=== PATIENT | male | born 1985 ===

== ENCOUNTER 2022-07-16 17:08 | Inpatient (IN) | payer BC ==
[2022-07-16] MEDS ORDERED: Morphine 4 MG/ML VIAL SLOW IVP PRN (23:30)
[2022-07-16 23:41] VITALS: BMI 34.1
[2022-07-16] MEDS ORDERED: Pantoprazole 40 MG VIAL IVP SCH (23:59)
[2022-07-17] MEDS: Ketorolac Tromethamine 30 MG/ML VIAL IVP PRN ×4 (00:02→18:49)
[2022-07-17] MEDS: Sodium Chloride 0.9% 1,000 ML IV SCH ×5 (00:02→20:22)
[2022-07-17] MEDS ORDERED: Acetaminophen 650 MG Suppository PR PRN (00:21)
[2022-07-17] MEDS ORDERED: Dextrose 50% Abboject 50 ML SYRINGE SLOW IVP PRN (00:21)
[2022-07-17] MEDS ORDERED: Dextrose 5% in Water 1,000 ML IV PRN (00:21)
[2022-07-17] MEDS ORDERED: Promethazine HCl 25 MG/ML VIAL IM PRN (00:21)
[2022-07-17] MEDS ORDERED: HumaLOG 300 UNITS/3 ML VIAL SC PRN ×2 (00:21)
[2022-07-17] MEDS ORDERED: Ondansetron ODT 4 MG TAB PO PRN (00:21)
[2022-07-17 01:30] LABS: Anion Gap 15 mmol/L (10-20); BUN (Urea Nitrogen) 14 mg/dL (8.9-20.6); Calc. Creatinine Clearance 254 mL/min (70-130); Calcium 8.9 mg/dL (7.8-10.44); Carbon Dioxide 24 mmol/L (22-29); Chloride 102 mmol/L (98-107); Estimated GFR 119; Glucose 134 mg/dL (70-105); Potassium 3.8 mmol/L (3.5-5.1); Sodium 137 mmol/L (136-145); Triglycerides 77 mg/dL (Less than 150)
[2022-07-17 01:35] LABS: Hemoglobin A1c 5.7 % (4.0-6.0)
[2022-07-17 01:40] LABS: ALT (SGPT) 15 U/L (8-55); AST (SGOT) 14 U/L (5-34); Albumin 3.9 g/dL (3.5-5.0); Alkaline Phosphatase 77 U/L (40-110); Bilirubin, Direct 0.4 mg/dL (0.1-0.3); Bilirubin, Total 0.8 mg/dL (0.2-1.2); Protein, Total 7.3 g/dL (6.0-8.3)
[2022-07-17] MEDS: Acetaminophen 325 MG TAB PO PRN ×3 (03:38→21:15)
[2022-07-17 04:21] LABS: Band 11 % (5-11); Hemoglobin 11.8 g/dL (14.0-18.0); Lymphocytes 7 % (21-51); MDiff Complete? YES; Mean Corpuscular HGB CONC 32.7 g/dL (32.0-36.0); Mean Corpuscular Hemoglobin 28.4 pg (27.0-31.0); Mean Corpuscular Volume 86.8 fL (78.0-98.0); Mean Platelet Volume 9.4 fL (7.4-10.4); Metamyelocyte 1 % (0-0); Monocytes 9 % (0-10); Neutrophil 72 % (42-75); Platelet Count 216 thou/uL (130-400); Platelet Morphology Comment PLT clumps seen-ADEQ; RBC Distribution Width 12.8 % (11.5-14.5); RBC Morphology Normal; Red Blood Cell (RBC) Count 4.17 mill/uL (4.70-6.10); Toxic Granulation SLIGHT; White Blood Cell (WBC) Count 20.9 thou/uL (4.8-10.8)
[2022-07-17] MEDS: Ondansetron PF 4 MG/2 ML Vial IVP PRN ×3 (04:29→17:15)
[2022-07-17] MEDS ORDERED: Morphine 4 MG/ML VIAL SLOW IVP PRN (04:41)
[2022-07-17] MEDS ORDERED: Morphine 4 MG/ML VIAL SLOW IVP SCH (04:45)
[2022-07-17] MEDS: Enoxaparin Sodium 40 MG/0.4 ML SYRINGE SC SCH (08:33)
[2022-07-17] MEDS: Pantoprazole 40 MG VIAL IVP SCH (08:33)
[2022-07-17] MEDS: Fentanyl 100 MCG/2 ML VIAL SLOW IVP PRN ×2 (15:56→22:31)
[2022-07-18] MEDS: Ketorolac Tromethamine 30 MG/ML VIAL IVP PRN ×2 (00:21→06:37)
[2022-07-18] MEDS: Acetaminophen 325 MG TAB PO PRN ×2 (01:22→19:02)
[2022-07-18] MEDS: Sodium Chloride 0.9% 1,000 ML IV SCH ×9 (02:00→23:59)
[2022-07-18] MEDS: Fentanyl 100 MCG/2 ML VIAL SLOW IVP PRN ×2 (04:44→12:02)
[2022-07-18] MEDS: Ondansetron PF 4 MG/2 ML Vial IVP PRN ×2 (06:37→15:19)
[2022-07-18 08:13] LABS: ALT (SGPT) 12 U/L (8-55); AST (SGOT) 13 U/L (5-34); Albumin 3.3 g/dL (3.5-5.0); Alkaline Phosphatase 77 U/L (40-110); Anion Gap 14 mmol/L (10-20); BUN (Urea Nitrogen) 9 mg/dL (8.9-20.6); Bilirubin, Total 0.5 mg/dL (0.2-1.2); Calc. Creatinine Clearance 304 mL/min (70-130); Calcium 8.3 mg/dL (7.8-10.44); Carbon Dioxide 20 mmol/L (22-29); Chloride 106 mmol/L (98-107); Estimated GFR 125; Globulin 3.3 g/dL (2.4-3.5); Glucose 131 mg/dL (70-105); Lipase 76 U/L (8-78); Potassium 3.5 mmol/L (3.5-5.1); Protein, Total 6.6 g/dL (6.0-8.3); Sodium 136 mmol/L (136-145)
[2022-07-18] MEDS: Enoxaparin Sodium 40 MG/0.4 ML SYRINGE SC SCH (08:17)
[2022-07-18] MEDS: Pantoprazole 40 MG VIAL IVP SCH (08:18)
[2022-07-18 08:51] LABS: Hemoglobin 11.1 g/dL (14.0-18.0); Mean Corpuscular HGB CONC 32.9 g/dL (32.0-36.0); Mean Corpuscular Hemoglobin 28.8 pg (27.0-31.0); Mean Corpuscular Volume 87.7 fL (78.0-98.0); Platelet Count 253 thou/uL (130-400); RBC Distribution Width 12.7 % (11.5-14.5); Red Blood Cell (RBC) Count 3.85 mill/uL (4.70-6.10); White Blood Cell (WBC) Count 16.5 thou/uL (4.8-10.8)
[2022-07-18 09:26] LABS: Band 3 % (5-11); Eosinophils 1 % (0-10); Lymphocytes 7 % (21-51); MDiff Complete? YES; Monocytes 9 % (0-10); Neutrophil 79 % (42-75); Platelet Morphology Comment Appears Adequate; RBC Morphology Normal; Reactive Lymphocytes 1 % (0-10)
[2022-07-18] MEDS: traMADol HCl 50 MG TAB PO PRN ×2 (13:15→20:18)
[2022-07-18] MEDS: Senokot 8.6 MG TAB PO SCH (20:18)
[2022-07-18] MEDS: Polyethylene Glycol 3350 17 GM Packet PO SCH (20:19)
[2022-07-19] MEDS: Sodium Chloride 0.9% 1,000 ML IV SCH ×4 (05:02→23:41)
[2022-07-19 08:14] LABS: #Eosinphils 0.3 thou/uL (0.0-0.7); #Lymphocytes 1.4 thou/uL (1.20-3.40); #Monocytes 1.6 thou/uL (0.11-0.59); #Neutrophils 11.9 thou/uL (1.40-6.50); %Basophils 0.3 % (0.0-1.0); %Eosinophils 1.6 % (0.0-10.0); %Lymphocytes 9.3 % (21.0-51.0); %Monocytes 10.3 % (0.0-10.0); %Neutrophils 78.4 % (42.0-75.0); Hemoglobin 11.1 g/dL (14.0-18.0); Mean Corpuscular HGB CONC 32.1 g/dL (32.0-36.0); Mean Corpuscular Hemoglobin 28.1 pg (27.0-31.0); Mean Corpuscular Volume 87.5 fL (78.0-98.0); Mean Platelet Volume 9.4 fL (7.4-10.4); Platelet Count 272 thou/uL (130-400); RBC Distribution Width 12.6 % (11.5-14.5); Red Blood Cell (RBC) Count 3.96 mill/uL (4.70-6.10); White Blood Cell (WBC) Count 15.2 thou/uL (4.8-10.8)
[2022-07-19 08:41] LABS: ALT (SGPT) 13 U/L (8-55); AST (SGOT) 13 U/L (5-34); Albumin 3.5 g/dL (3.5-5.0); Alkaline Phosphatase 87 U/L (40-110); Anion Gap 15 mmol/L (10-20); BUN (Urea Nitrogen) 4 mg/dL (8.9-20.6); Bilirubin, Total 0.7 mg/dL (0.2-1.2); Calc. Creatinine Clearance 295 mL/min (70-130); Calcium 8.9 mg/dL (7.8-10.44); Carbon Dioxide 20 mmol/L (22-29); Chloride 104 mmol/L (98-107); Estimated GFR 124; Globulin 3.3 g/dL (2.4-3.5); Glucose 114 mg/dL (70-105); Potassium 3.4 mmol/L (3.5-5.1); Protein, Total 6.8 g/dL (6.0-8.3); Sodium 136 mmol/L (136-145)
[2022-07-19] MEDS: Enoxaparin Sodium 40 MG/0.4 ML SYRINGE SC SCH (09:31)
[2022-07-19] MEDS: Senokot 8.6 MG TAB PO SCH ×2 (09:33→20:48)
[2022-07-19] MEDS: Pantoprazole 40 MG VIAL IVP SCH (10:06)
[2022-07-19] MEDS: Ondansetron PF 4 MG/2 ML Vial IVP PRN (16:46)
[2022-07-19] MEDS: traMADol HCl 50 MG TAB PO PRN (17:47)
[2022-07-19] MEDS: Polyethylene Glycol 3350 17 GM Packet PO SCH (20:51)
[2022-07-20] MEDS: Sodium Chloride 0.9% 1,000 ML IV SCH ×4 (04:42→17:59)
[2022-07-20 08:48] VITALS: TEMP 98.4
[2022-07-20] MEDS: Enoxaparin Sodium 40 MG/0.4 ML SYRINGE SC SCH (10:20)
[2022-07-20] MEDS: Pantoprazole 40 MG VIAL IVP SCH (10:21)
[2022-07-20] MEDS: Senokot 8.6 MG TAB PO SCH (10:21)
[2022-07-20] MEDS ORDERED: fentaNYL Citrate/PF 100 MCG/2 ML SYRINGE ONE (12:34)
[2022-07-20] MEDS ORDERED: SUGAMMADEX SODIUM 200 MG/2 ML VIAL ONE (12:34)
[2022-07-20] MEDS ORDERED: Iopamidol 30 ML ONE (12:47)
[2022-07-20] MEDS ORDERED: Bupivacaine HCl 0.5%/Epinephrine 1:200,000/PF 30 ml Vial ONE (12:47)
[2022-07-20] MEDS ORDERED: PROPOFOL 200 MG/20 ML VIAL ONE (12:54)
[2022-07-20] MEDS ORDERED: Phenylephrine 10 MG/ML VIAL ONE (12:54)
[2022-07-20] MEDS ORDERED: Dexamethasone 20 MG/5 ML VIAL ONE (12:54)
[2022-07-20] MEDS ORDERED: Esmolol 100 MG/10 ML VIAL ONE (12:54)
[2022-07-20] MEDS ORDERED: Ondansetron PF 4 MG/2 ML Vial ONE (12:54)
[2022-07-20] MEDS ORDERED: Glycopyrrolate 0.2 MG/ML 5 ML SYRINGE ONE (12:54)
[2022-07-20] MEDS ORDERED: Rocuronium Bromide 10 MG/ML (10ML VIAL) ONE (12:54)
[2022-07-20] MEDS ORDERED: Ketorolac Tromethamine 30 MG/ML VIAL ONE (12:54)
[2022-07-20] MEDS ORDERED: NEOSTIGMINE 3 MG/3 ML SYR 3 MG/3 ML SYRINGE ONE (12:54)
[2022-07-20] MEDS ORDERED: Lidocaine 1% MPF 2 ML VIAL ONE (12:54)
[2022-07-20] MEDS ORDERED: Ibuprofen 800 MG TAB PO PRN (12:55)
[2022-07-20] MEDS ORDERED: Acetaminophen 500 MG TAB PO SCH ×2 (13:00→18:00)
[2022-07-20] MEDS ORDERED: HYDROmorphone 2 MG/ML VIAL ONE (13:02)
[2022-07-20] MEDS ORDERED: PROPOFOL 0 ML ONE (13:03)
[2022-07-20] MEDS ORDERED: Promethazine HCl 25 MG/ML VIAL IVPB PRN (13:48)
[2022-07-20] MEDS ORDERED: Ondansetron HCl/PF 4 MG/2 ML Vial IVP PRN (13:48)
[2022-07-20] MEDS ORDERED: Promethazine HCl 25 MG/ML VIAL IM PRN (13:48)
[2022-07-20] MEDS ORDERED: Fentanyl 100 MCG/2 ML VIAL ONE (14:58)
[2022-07-20 17:56] VITALS: BP 143/86
== END 2022-07-20 18:10 | disposition home or self-care (01) | DRG 417 ==
LOC: MSONC 17:08
PROVIDERS: ADMIT Internal Medicine; ATTEND Internal Medicine
PROC: 0FT44ZZ Resection of Gallbladder, Percutaneous Endoscopic Approach (ICD-10-PCS; principal; 2022-07-20)
PROC: BF131ZZ Fluoroscopy of Gallbladder and Bile Ducts using Low Osmolar Contrast (ICD-10-PCS; 2022-07-20)
DX: K80.62 Calculus of gallbladder and bile duct with acute cholecystitis without obstruction (principal); K85.10 Biliary acute pancreatitis without necrosis or infection; Z20.822 Contact with and (suspected) exposure to COVID-19; Z28.21 Immunization not carried out because of patient refusal; E11.9 Type 2 diabetes mellitus without complications; I10 Essential (primary) hypertension; E66.9 Obesity, unspecified; Z68.34 Body mass index [BMI] 34.0-34.9, adult; Z79.899 Other long term (current) drug therapy; Z79.84 Long term (current) use of oral hypoglycemic drugs; Z89.421 Acquired absence of other right toe(s); Z83.79 Family history of other diseases of the digestive system
CPT/HCPCS: 36415; 36416; 47532; 76705; 80053; 80076; 83036; 83690; 84478; 85025; 88304; C1713; C9113; J1100; J1170; J1610; J1650; J1885; J2270; J2370; J2405; J2704; J3010; J7050; Q9967; U0003; U0005